=== PATIENT | female | born 1945 | race Caucasian/White ===

== ENCOUNTER 2017-04-23 05:30 | Day surgery (SDC) | payer MEDICARE, OTHER ==
[2017-04-16 09:50] LABS: HEMATOCRIT 47.1 % (36.0-47.0); HEMOGLOBIN 16.2 g/dL (12.0-15.5); HGB HCT DIFFERENCE 1.5; MEAN CORPUSCULAR HGB CONC 34.3 g/dL (32.0-36.0); MEAN CORPUSCULAR VOLUME 90 fl (80-97); RED BLOOD COUNT 5.23 10^6/uL (3.72-5.28); WHITE BLOOD COUNT 9.2 10^3/uL (4.0-10.5)
[2017-04-16 10:29] LABS: ANION GAP 10 (5-19); BLOOD UREA NITROGEN 12 mg/dL (7-20); CALCIUM 9.4 mg/dL (8.4-10.2); CARBON DIOXIDE 29 mmol/L (22-30); CHLORIDE 95 mmol/L (98-107); CREATININE RESULT 0.77 mg/dL (0.52-1.25); GLUCOSE 99 mg/dL (75-110); POTASSIUM 3.9 mmol/L (3.6-5.0); SODIUM 134.3 mmol/L (137-145)
--- NOTE | 2017-04-16 10:31 | RADIOLOGY REPORT (SQ) ---
EXAM DESCRIPTION: CHEST PA/LATERAL COMPLETED DATE/TIME: 04/16/2017 10:11 am REASON FOR STUDY: PRE-OP COMPARISON: August 2015 EXAM PARAMETERS: NUMBER OF VIEWS: two views TECHNIQUE: Digital Frontal and Lateral radiographic views of the chest acquired. RADIATION DOSE: NA LIMITATIONS: none FINDINGS: LUNGS AND PLEURA: No acute consolidations or pleural effusions are identified. A small no dular density is identified in the left lung base which may represent calcified costal cartilage or p ossibly a nipple shadow. Other etiologies cannot be completely excluded however. If clinically dk anted oblique views of the chest with nipple markers may be of value for further evaluation. MEDIASTINUM AND HILAR STRUCTURES: No masses or contour abnormalities. HEART AND VASCULAR STRUCTURES: Heart normal size. No evidence for failure. BONES: No acute findings. HARDWARE: None in the chest. OTHER: Bony structures are osteopenic with a slightly exaggerated thoracic kyphosis and degenerative changes in the thoracic spine. Old healed left rib fractures are again identified. IMPRESSION: No acute consolidations or pleural effusions are identified. Other findings as noted ab sofiya TECHNICAL DOCUMENTATION: JOB ID: [id number] [employer]- All Rights Reserved
--- NOTE | 2017-04-16 12:02 | EKG REPORT ---
SEVERITY:- OTHERWISE NORMAL ECG - SINUS RHYTHM LEFT AXIS DEVIATION LOW VOLTAGE IN FRONTAL LEADS : Confirmed by: Airam Castro MD 16-Apr-2017 12:02:13
[~2017-04-23 05:30] MED LIST: CEFAZOLIN 1 GM/D5W RTU 1 GM/50 ML RTUPB IV PRN; LACTATED RINGERS 1000 ML IV PRN; LIDOCAINE 0.5% INJ-PF (5 MG/ML) 50 ML SDV SUBCUT PRN
[2017-04-23] MEDS ORDERED: BUPIVACAINE HCL 0.25 % INJ/PF (2.5 MG/1 ML) 30 ML VIAL ONE (06:36)
[2017-04-23] MEDS ORDERED: FENTANYL CITRATE INJ/PF 250 MCG/5 ML AMPULE ONE (06:46)
[2017-04-23] MEDS ORDERED: MIDAZOLAM 2 MG/2 ML INJ ONE (06:47)
[2017-04-23] MEDS ORDERED: EPHEDRINE SULFATE INJ 50 MG/1 ML AMPULE ONE (06:47)
[2017-04-23] MEDS ORDERED: PROPOFOL INJ 200 MG/20 ML VIAL IV ONE (06:48)
[2017-04-23] MEDS ORDERED: ACETAMINOPHEN 100 ML IV ONE (06:48)
[2017-04-23] MEDS ORDERED: FENTANYL CITRATE INJ/PF 100 MCG/2 ML AMPUL IV PRN ×3 (08:03)
[2017-04-23] MEDS ORDERED: ONDANSETRON HCL INJ/PF 4 MG/2 ML SDV IV PRN ×3 (08:03→09:42)
[2017-04-23] MEDS ORDERED: DIPHENHYDRAMINE HCL 50 MG/ML VIAL IV PRN (08:03)
[2017-04-23] MEDS ORDERED: MORPHINE SULFATE 10 MG/ML INJ IV PRN ×2 (08:03→09:42)
[2017-04-23] MEDS ORDERED: BUPIVACAINE INJ/PF LIPOSOME/PF 266 MG/20 ML SDV ONE (08:35)
--- NOTE | 2017-04-23 09:16 | Operative Report ---
Operative Report DATE OF SURGERY: 04/23/17 PREOPERATIVE DIAGNOSIS: 1. Ventral wall hernia. 2. Intra-abdominal adhesions POSTOPERATIVE DIAGNOSIS: Same with multiple ventral wall hernias OPERATION: 1. Laparoscopic lysis of adhesions. 2. Percutaneous closure of multiple abdominal wall hernias. 3. Deployment of intraperitoneal Covidien 20 x 15 cm parietex mesh SURGEON: KEN PIZARRO 1ST DAIRY CONSULTANT: AJ QUILES ANESTHESIA: GA TISSUE REMOVED OR ALTERED: None COMPLICATIONS: None ESTIMATED BLOOD LOSS: Scant INTRAOPERATIVE FINDINGS: See below PROCEDURE: The patient was taken to the preop holding area the main operating room where general anesthesia was induced. Arms were abducted, abdomen prepped and draped with Betadine, and instrumentation set up for laparoscopic ventral hernia repair. Surgical plan and surgical timeout were conducted The patient's abdominal wall is significant for a long midline incision above and below the umbilicus from previous exploratory laparotomy. Therefore we approached the peritoneal cavity by placing a varies needle in the left upper quadrant. The skin was any stopped with quarter percent Marcaine. A small jared was made the skin with 11 blade, and a Veress needle inserted peritoneal cavity pneumoperitoneum established. Veress needle was removed, 5 mm port was inserted a 5 mm flexible scope was inserted. Under direct visualization, we placed 2 additional ports one on left lower quadrant and one in the right mid field. Findings were significant for extensive anterior abdominal wall and the remaining omentum and viscera. Using a combination of hook, cautery, blunt and LigaSure dissection, all the adhesions between the 2 loops of small bowel, and portion of omentum were taken after the anterior abdominal wall. Of note there were multiple hernias of varying sizes in fact a Surinamese cheese type configuration from the subxiphoid area to the umbilicus. Smaller hernias were more cephalad and larger hernias caudad. The 2 larger hernias were approximately 5 cm in diameter. All of the incarcerated tissue was reduced successfully. We were very cautious handling the small intestine. Photos were taken of the reduced tissue. Photos were also patient taken of the anterior abdominal wall demonstrating the multiple hernias. We now proceeded to close the majority of the fascial defects using the percutaneous suture passer and #1 PDS suture. Skin was anesthetized with quarter percent Marcaine. 2 small nicks were made in the skin between the xiphoid and the umbilicus and midline. Using the #1 PDS suture, we placed a variety of single loop and [id number] sutures starting from the cephalad position, closing the fascial defect as best we could under a mild to moderate amount of tension. Naturally this was not a pristine closure but it markedly reduced the gaping defect in the fascia. At the conclusion of the placement of approximately 7 stitches, we had the defects reasonably well closed and concluding photographs were taken. We now brought onto the field a 15 x 20 cm Covidien Parietex mesh oriented it such the 20 cm length was oriented vertically. 0 PDS stitches were placed at the 12, 3, 6, and 9:00 positions. The mesh was oriented with a marker, moistened, rolled, brought to the anterior abdominal wall at the right mid port site position. The mesh was unfolded, brought to the anterior abdominal wall using the disposable suture passer. All knots were secured at the respective positions, and then approximately 30 suture tack vamsi were used to secure the mesh in the intervening areas. There was no bleeding. We photographed the final product on the anterior abdominal wall. Were satisfied with the repair. We reinspected the viscera to ensure no evidence of injury there was none. The patient tolerated this portion of procedure well. All ports removed under direct visualization pneumoperitoneum evacuated, and wounds closed with 3-0 Vicryl. Approximately 20 cc of full-strength Exparel was injected subcutaneous space. Patient tolerated the procedure well, extubated, taken recovery in stable condition. The physician university administrative assistant, Ms. Quiles, provided assistance during this case by: Assisting and port insertion, retracting tissue, instillation of local anesthesia and closure of skin incisions..
--- NOTE | 2017-04-23 09:20 | PDOC DISCHARGE SUMMARY ---
Discharge Summary (SDC) - Discharge Final Diagnosis: ventral wall hernia Date of Surgery: 04/23/17 Discharge Date: 04/23/17 Condition: Stable Treatment or Instructions: [facility] [address], [place] [address] Discharge Instructions: Laparoscopic Surgery 1. General Information: a. DO NOT DRIVE a car or operate dangerous machinery for 3-4 days or while taking narcotic pain pills. b. DO NOT consume alcohol, tranquilizers, sleeping medications or any non- prescribed medications for 24 hours unless approved by your doctor or as long as taking narcotic prescription medications. c. DO NOT make important decisions or sign any important papers for the first 24 hours after surgery. d. When discharged home the same day of surgery have a responsible person with you for the first night. 2. Activity Restrictions: 6 weeks. a. NO heavy lifting, straining abdominal muscles, bending over a lot, yard work, house work, or sports for [address] for 3-4 days or while taking _Toradol_ . c. It is fine to go for walks, up and down steps, ride in a car. d. Elevate your head when sleeping/resting. 3. Treatment: a. You may shower 24 hours after surgery, no baths or swimming for 2 weeks. Remove band-aids or dressings before shower but leave paper strips (steri-strips ) on the skin to fall off on their own. If still on at postoperative visit they will be removed then. b. Drainage of fluid or blood is not unusual from an incision. If occurs, you can clean with peroxide and cotton ball daily and cover with dry gauze until the wound seals. c. If a lot of bleeding occurs, you can hold pressure with a gauze or cloth over the site for 10 minutes and it will usually stop. If bleeding continues you will need to call for possible evaluation in office or emergency room. 4. Medications: a. _Toradol_ may be taken for pain as needed, one or two tablets every 4-6 hours. Stop the narcotic when able since you cannot take it and drive, and they cause constipation. You may switch to plain Tylenol as you transition from the narcotic. Many adults find good pain relief with Advil 600-800 mg three times a day with meals. This can cause indigestion, ulcers, and kidney problems with long-term use. Do not take advil while taking toradol b. You should resume all normal medications unless a change is specified by your doctors. c. Antibiotic(s) if needed ( NONE) 5. Diet: Begin with clear liquids and may progress to your normal diet if not nauseated. No high fat, high protein foods the day of surgery. 6. The following may occur after laparoscopic surgery: a. Shoulder or upper back ache from retained gas that should resolve in 1-2 days b. Soreness and bruising at incision sites will resolve with time. c. Scrotal swelling (labia in women) and bruising is often seen after hernia surgery. d. Sore throat e. Fatigue may last days to weeks. f. Difficulty urinating may occur and may need to come into emergency room for urinary catheter placement. 7. Notify Physician If: a. Worsening or pain not improved with pain medication b. Persistent nausea and vomiting c. Fever above 101 d. Persistent bleeding or swelling at operative site e. Unable to urinate and uncomfortable bladder 6-8 hours after surgery 8..Follow Up Care: a. Schedule a follow up appointment with your doctor for 2 weeks. In the event of any postoperative problems or questions or you may call the office during business hours or the On-Call physician evenings and weekends at [facility]. [facility] I understand the instructions for my postoperative care as described above and a copy has been given to me. Patient/Significant Other Witness Date Prescriptions: Ketorolac Tromethamine [Toradol 10 mg Tablet] 10 mg PO Q6HP PRN #20 tablet PRN Reason: Discharge Diet: As Tolerated Discharge Activity: No Lifting Over 10 Pounds, No Lifting/Push/Pulling Report the Following to Your Physician Immediately: Nausea, Vomiting, Increase in Pain, Fever over 101 Degrees, Swelling, Warmth, Drainage-Foul Smelling
[2017-04-23] MEDS: FENTANYL CITRATE INJ/PF 100 MCG/2 ML AMPUL ONE ×2 (09:39→09:51)
[2017-04-23] MEDS ORDERED: OXYCODONE-ACETAMINOPHEN 5-325 MG TABLET PO PRN (09:41)
[2017-04-23] MEDS ORDERED: DOCUSATE SODIUM 100 MG CAPSULE PO SCH (10:00)
[2017-04-23] MEDS ORDERED: GLYCOPYRROLATE INJ 0.4 MG/2 ML VIAL ONE (11:49)
[2017-04-23] MEDS ORDERED: LIDOCAINE 2% INJ-PF (20 MG/ML) 10 ML AMPUL ONE (11:49)
[2017-04-23] MEDS ORDERED: SUCCINYLCHOLINE CHLORIDE INJ 200 MG/10 ML VIAL ONE (11:49)
[2017-04-23] MEDS ORDERED: ONDANSETRON HCL INJ/PF 4 MG/2 ML SDV ONE (11:49)
[2017-04-23] MEDS ORDERED: VECURONIUM BROMIDE INJ 10 MG VIAL IV ONE (11:49)
[2017-04-23] MEDS ORDERED: NEOSTIGMINE METHYLSULFATE 10 MG/10 ML VIAL ONE (11:49)
[2017-04-23] MEDS ORDERED: DEXAMETHASONE SOD PHOSPHATE INJ 4 MG/1 ML VIAL ONE (11:49)
[2017-04-23] MEDS ORDERED: DOCUSATE SODIUM 100 MG CAPSULE PO ONE (12:00)
[2017-04-23] MEDS: DEXTROSE 5%-LACTATED RINGERS 1,000 ML IV PRN (14:47)
[2017-04-23] MEDS: DOCUSATE SODIUM 100 MG CAPSULE PO SCH (17:16)
[2017-04-23] MEDS: OXYCODONE-ACETAMINOPHEN 5-325 MG TABLET PO PRN (17:17)
[2017-04-24] MEDS: OXYCODONE-ACETAMINOPHEN 5-325 MG TABLET PO PRN
[2017-04-24] MEDS: DEXTROSE 5%-LACTATED RINGERS 1,000 ML IV PRN (04:51)
[2017-04-24] MEDS ORDERED: MORPHINE SULFATE 10 MG/ML INJ IV PRN (09:11)
[2017-04-24] MEDS ORDERED: ONDANSETRON HCL INJ/PF 4 MG/2 ML SDV IV PRN (09:12)
[2017-04-24] MEDS: DOCUSATE SODIUM 100 MG CAPSULE PO SCH (10:19)
[2017-04-24 10:54] VITALS: BP 172/98
== END 2017-04-24 11:33 | disposition home or self-care (01) ==
LOC: OROUT 05:30 → 4N 11:04 → OROUT 04-24 11:33
PROVIDERS: ATTEND Surgery
PROC: 0DNW4ZZ Release Peritoneum, Percutaneous Endoscopic Approach (ICD-10-PCS; 2017-04-23)
PROC: 0WUF4JZ Supplement Abdominal Wall with Synthetic Substitute, Percutaneous Endoscopic Approach (ICD-10-PCS; principal; 2017-04-23 07:30)
DX: K43.9 Ventral hernia without obstruction or gangrene (principal); K66.0 Peritoneal adhesions (postprocedural) (postinfection); J44.9 Chronic obstructive pulmonary disease, unspecified; R06.02 Shortness of breath; M19.90 Unspecified osteoarthritis, unspecified site; I10 Essential (primary) hypertension; F17.210 Nicotine dependence, cigarettes, uncomplicated; Z79.899 Other long term (current) drug therapy; Z79.891 Long term (current) use of opiate analgesic; Z90.49 Acquired absence of other specified parts of digestive tract
CPT/HCPCS: 93005; 36415 ×2; 84132; 85027; 80048; 71020; 94799; 93010; 49652; 49329; C1781; J2250; J0690; J1100; A9270 ×4; J3490 ×3; J3010 ×2; J2270; J0330; J2405; J2704; J0131; C9290; 752

== ENCOUNTER 2017-04-28 15:13 | Inpatient (IN) | payer MEDICARE, OTHER ==
[2017-04-28] MEDS ORDERED: NORMAL SALINE 1000 ML 1,000 ML IV ONE (16:15)
--- NOTE | 2017-04-28 17:18 | HISTORY AND PHYSICAL E ---
History and Physical NAME: LUIZ MORRISON : 1945 AGE: 71Y ADMITTED: 04/28/2017 ROOM: 425 CHIEF COMPLAINT: Failure to thrive. HISTORY OF PRESENTING ILLNESS: The patient is a 71-year-old white female, 5 days status post laparoscopic ventral wall hernia repair with mesh by Dr. Hussein at [facility]. The patient was discharged home on postoperative day 1 with abdominal pain, but not unexpected considering the large mesh inserted. While home, patient did not do well, with poor p.o. intake, poor activity, persisting abdominal pain. She presents to [facility] earlier today complaining of above symptoms with loose stool and nonproductive cough. She continues to smoke a pack to two a day. Laboratory profile was obtained which showed a leukocytosis, and metabolic acidosis with dehydration. She was advised admission. PAST MEDICAL HISTORY: Significant for: 1. COPD. 2. Hypertension. PAST SURGICAL HISTORY: Significant for the above plus: 1. Laparoscopic cholecystectomy. 2. Colonoscopy. 3. Previous exploratory laparotomy with a bowel obstruction. 4. Tubal ligation. MEDICATIONS: Include: 1. Lisinopril. 2. Atenolol. 3. Tramadol. 4. Trazodone. FAMILY HISTORY: Significant for thyroid disease and coronary artery disease. SOCIAL HISTORY: The patient continues to smoke daily. REVIEW OF SYSTEMS: CONSTITUTIONAL: As per HPI. CARDIOVASCULAR: The patient denies. RESPIRATORY: The patient reports chronic cough, but nonproductive. GASTROINTESTINAL: The patient has very little p.o. intake due to abdominal pain. Remainder of the review of systems is unremarkable. PHYSICAL EXAMINATION: VITAL SIGNS: Temperature 97.8. Heart rate 81. Blood pressure 120/69. Respirations 14. Room air saturation 95%. GENERAL: The patient appears to be in mild distress but not acutely so. HEAD: Eyes without icterus. Oropharynx shows poor dentition. PULMONARY: Exam reveals accessory muscles of respiration utilized with scattered rhonchi. HEART: Without murmur or gallop. ABDOMEN: The abdomen has operative Steri-Strips in place. The abdomen is not distended. There are no peritoneal signs. There is some tenderness but no rigidity. EXTREMITIES: Upper and lower extremities without cyanosis, clubbing, edema. DIAGNOSTIC DATA: Laboratory profile shows a white blood cell count of 18,600 with 92% segmented neutrophils, hemoglobin 15.1. Electrolytes show bicarbonate of 15 and a potassium of 3.3, alkaline phosphatase at 250, AST 67, ALT 53, total bilirubin 1.3, lipase 14.2. IMPRESSION: 1. Postoperative abdominal pain. 2. Leukocytosis. 3. Metabolic acidosis with dehydration. 4. Five days post laparoscopic ventral hernia repair. 5. COPD. 6. Active smoker. RECOMMENDATIONS: 1. Admit to surgicalist service, keep NPO on IV fluids, and order a CT scan of the abdomen and pelvis with IV and oral contrast as well as a chest x-ray. 2. Will consult the hospitalist service to assist in further evaluation of the patient. 3. Will also provide a conservative amount of pain medication as needed. DICTATING PHYSICIAN: KEN HUSSEIN M.D. [id number] PHY#: [id number] ID: [id number] JOB#: [id number] ACCT: [id number] cc:KEN HUSSEIN M.D. >
[2017-04-28] MEDS: KETOROLAC TROMETHAMINE INJ/PF 30 MG/1 ML SDV IV PRN (17:52)
--- NOTE | 2017-04-28 18:39 | PDOC CONSULTATION ---
Consultation Consult Date: 04/28/17 Attending physician:: KEN LOPEZ Consult reason:: medical management History of Present Illness Admission Date/PCP: 04/28/17 16:51 ROBERT GIBBONS MD Patient complains of: abdominal pain History of Present Illness: LUIZ MORRISON is a 71 year old female presents to the hospital from surgeon 's office where she went for increasing RLQ abdominal pain. she is postop day # 5 for laparoscopic ventral hernia repair and lysis of adhesions with mesh placement by dr lopez. she reports constant, cramping, aching abdominal pain , nonradiating with dry heaves, subjective fevers and chills. she reports last BM yesterday liquid with stool elements but no blood. she denies dysuria, chest pain, palpitations, MEI, SOA, swollen glands, sore throat, rash and her wounds are not hot, red or tender themselves. In the office today she just didn 't look well, labs show marked leukocytosis, mild hypokalemia, mild AG metabolic acidosis and abnl LFTs. we were asked to follow along and help sort out her symptoms. Past Medical History Cardiac Medical History: Reports: Hypertension Denies: Coronary Artery Disease, Myocardial Infarction Pulmonary Medical History: Denies: Asthma, Bronchitis, Chronic Obstructive Pulmonary Disease (COPD), Pneumonia Neurological Medical History: Denies: Seizures Musculoskeltal Medical History: Denies: Arthritis Psychiatric Medical History: Denies: Depression Hematology: Denies: Anemia Past Surgical History Past Surgical History: Reports: Cholecystectomy, Other - ventral hernia repair, lysis of adhesions and mesh placement Social History Information Source: Patient Smoking Status: Current Every Day Smoker Cigarettes Packs Per Day: 2 Frequency of Alcohol Use: None Hx Recreational Drug Use: No Drugs: None Hx Prescription Drug Abuse: No - Advance Directive Resuscitation Status: Full Code Family History Family History: Reviewed & Not Pertinent Parental Family History Reviewed: Yes Children Family History Reviewed: Yes Sibling(s) Family History Reviewed.: Yes Medication/Allergy Home Medications: Atenolol [Tenormin 50 mg Tablet] 50 mg PO DAILY 04/28/17 Dicyclomine HCl [Bentyl 10 mg Capsule] 10 mg PO DAILY 04/28/17 Hydrochlorothiazide 25 mg PO DAILY 04/28/17 Omeprazole 40 mg PO DAILY 04/28/17 Tramadol HCl [Ultram 50 mg Tablet] 50 mg PO TID 04/28/17 Allergies/Adverse Reactions: No Known Allergies Allergy (Verified 04/11/17 11:25) Review of Systems All systems: reviewed and no additional remarkable complaints except as stated - all systems reviewed, see HPI, remaining systems negative Physical Exam Vital Signs: Temp Pulse Resp BP Pulse Ox 97.9 F 81 14 121/69 95 04/28/17 16:25 04/28/17 16:25 04/28/17 16:25 04/28/17 16:25 04/28/17 16:25 Intake & Output 04/27/17 04/28/17 04/29/17 06:59 06:59 06:59 Weight 46.4 kg General appearance: PRESENT: no acute distress, well-developed, well-nourished Head exam: PRESENT: atraumatic, normocephalic Eye exam: PRESENT: EOMI. ABSENT: conjunctival injection, scleral icterus Neck exam: PRESENT: JVD. ABSENT: full ROM, lymphadenopathy, tenderness Respiratory exam: PRESENT: clear to auscultation rayray. ABSENT: accessory muscle use Cardiovascular exam: PRESENT: RRR. ABSENT: systolic murmur Pulses: PRESENT: normal radial pulses, normal dorsalis pedis pul Vascular exam: PRESENT: normal capillary refill GI/Abdominal exam: PRESENT: normal bowel sounds, soft, tenderness - point specific RLQ tenderness to palpation. ABSENT: distended, guarding Extremities exam: ABSENT: calf tenderness, pedal edema Musculoskeletal exam: PRESENT: ambulatory, full ROM Neurological exam: PRESENT: alert, awake, oriented to person, oriented to place , oriented to time, oriented to situation Psychiatric exam: PRESENT: appropriate affect, normal mood Skin exam: PRESENT: warm, other - laparoscopic wounds are well approximated, c/d /i Results Laboratory Results: labs reviewed from earlier today, WBCs 18.6, 92% segs without bands, mild hypokalemia 3.3, CO3 15, AG 24 and LFTs mildly elevated, normal lipase Assessment & Plan - Diagnosis (1) Abdominal pain Qualifiers: Abdominal location: generalized Qualified Code(s): R10.84 - Generalized abdominal pain Is this a current diagnosis for this admission?: YesPlan: unclear etiology, possibly related to recent surgery and resultant abdominal wall pain. discussed case with dr lopez and he will order ct abd/pelvis and cxr with follow up labs in the am. he started IVFs with potassium supplements. pain control per surgery. diet per surgery. (2) High anion gap metabolic acidosis Is this a current diagnosis for this admission?: YesPlan: she freely admits to almost no oral intake so initial thinking is starvation ketosis; we'll see what the ct scan shows and follow up CO2 after IVFs. (3) Hypokalemia Is this a current diagnosis for this admission?: YesPlan: replace and monitor; ck Mg in am (4) Abnormal liver function Is this a current diagnosis for this admission?: YesPlan: again, likely due to lack of oral intake, will ck again in am after IVFs (5) HTN (hypertension) Qualifiers: Hypertension type: essential hypertension Qualified Code(s): I10 - Essential (primary) hypertension Is this a current diagnosis for this admission?: YesPlan: continue home regimen with holding parameters. (6) GERD (gastroesophageal reflux disease) Qualifiers: Esophagitis presence: esophagitis presence not specified Qualified Code(s): K21.9 - Gastro-esophageal reflux disease without esophagitis Is this a current diagnosis for this admission?: YesPlan: CONTINUE PPI - Time Time Spent: 30 to 50 Minutes Medications reviewed and adjusted accordingly: Yes
--- NOTE | 2017-04-28 20:31 | RADIOLOGY REPORT (SQ) ---
EXAM DESCRIPTION: CHEST PA/LAT COMPLETED DATE/TIME: 04/28/2017 8:00 pm REASON FOR STUDY: S/P Ventral Hernia COMPARISON: August 2015 EXAM PARAMETERS: NUMBER OF VIEWS: two views TECHNIQUE: Digital Frontal and Lateral radiographic views of the chest acquired. RADIATION DOSE: NA LIMITATIONS: none FINDINGS: LUNGS AND PLEURA: Patchy increased density is identified in the lung bases which could rep resent bibasilar pneumonic infiltrates or atelectatic changes. Remaining lung palma are clear. No pleural effusions are identified. Again there is evidence for obstructive lung disease. MEDIASTINUM AND HILAR STRUCTURES: No masses or contour abnormalities. HEART AND VASCULAR STRUCTURES: Heart normal size. No evidence for failure. BONES: Bony structures are osteopenic with an exaggerated thoracic kyphosis and degenerative changes in the thoracic spine. HARDWARE: None in the chest. OTHER: No other significant finding. IMPRESSION: Bibasilar air airspace densities as noted above which could represent bibasilar pneumoni c infiltrates or atelectatic changes. Obstructive lung disease. Other findings as noted above TECHNICAL DOCUMENTATION: JOB ID: [id number] [employer]- All Rights Reserved
[2017-04-28] MEDS ORDERED: VANCOMYCIN HCL 0 MG in DEXTROSE 5%-WATER 250 ML IV NR (22:15)
[2017-04-28] MEDS: NORMAL SALINE 1000 ML 1,000 ML with POTASSIUM CHLORIDE 30 MEQ IV PRN ×2 (22:31)
[2017-04-28 22:53] LABS: APPEARANCE,URINE CLEAR; BILIRUBIN,URINE NEGATIVE (NEGATIVE); GLUCOSE, URINE NEGATIVE (NEGATIVE); KETONES,URINE 80 mg/dL (NEGATIVE); LEUKOCYTE ESTERASE,URINE LARGE (NEGATIVE); NITRITE,URINE NEGATIVE (NEGATIVE); PROTEIN,URINE NEGATIVE (NEGATIVE)
[2017-04-28 22:54] LABS: URINE SPECIFIC GRAVITY > 1.060
[2017-04-28] MEDS ORDERED: AZITHROMYCIN INJ 500 MG VIAL IV PRN (22:59)
[2017-04-28] MEDS ORDERED: AZITHROMYCIN 500 MG in DEXTROSE 5%-WATER 250 ML IV ONE (23:00)
[2017-04-28] MEDS ORDERED: CEFTRIAXONE 1 GM/D5W RTU 1 GM/50 ML RTUPB IV ONE (23:00)
[2017-04-28] MEDS ORDERED: VANCOMYCIN HCL INJ 1000 MG VIAL IV PRN (23:25)
[2017-04-29] MEDS ORDERED: VANCOMYCIN HCL 1,000 MG in DEXTROSE 5%-WATER 250 ML IV ONE ×2
[2017-04-29] MEDS ORDERED: VANCOMYCIN HCL INJ 1000 MG VIAL ONE (00:47)
[2017-04-29] MEDS ORDERED: AZITHROMYCIN INJ 500 MG VIAL IV ONE (00:47)
--- NOTE | 2017-04-29 02:13 | RADIOLOGY REPORT (SQ) ---
EXAM DESCRIPTION: CT ABD/PELVIS WITH IV ORAL COMPLETED DATE/TIME: 04/28/2017 8:15 pm REASON FOR STUDY: S/P Ventral Hernia Repair K43.9 VENTRAL HERNIA WITHOUT OBSTRUCTION OR GANGRENE COMPARISON: CR, chest, 04/28/2017 TECHNIQUE: CT scan of the abdomen and pelvis performed using helical scanning technique with dynamic intravenous contrast injection. No oral contrast. Images reviewed with lung, soft tissue, and bone windows. Reconstructed coronal and sagittal MPR images reviewed. Delayed images for evaluation of the urinary system also acquired. All images stored on PACS. All CT scanners at this facility use dose modulation, iterative reconstruction, and/or weight based d osing when appropriate to reduce radiation dose to as low as reasonably achievable (ALARA). [facility]: Dose Right [facility]: CareDose [facility]: Dose Right [facility]: Teradose 4D [facility]: CD Diagnostics CONTRAST TYPE AND DOSE: contrast/concentration: Isovue 370.00 mg/ml; Total Contrast Delivered: 50.0 ml; Total Saline Delivered: 65.1 ml RENAL FUNCTION: Creatinine 0.8 RADIATION DOSE: Up-to-date CT equipment and radiation dose reduction techniques were employed. CTDIv ol: 2.9 - 3.5 mGy. DLP: 276 mGy-cm.. LIMITATIONS: None. FINDINGS: LOWER CHEST: Small airspace consolidation of the right lower lobe. Small streakiness of b ilateral lower lobes. Minimal right pleural fluid. LIVER: Normal size. No masses. No dilated ducts. Calcified granulomata. SPLEEN: Normal size. No focal lesions. PANCREAS: No masses. No significant calcifications. No adjacent inflammation or peripancreatic fluid collections. Pancreatic duct not dilated. GALLBLADDER: Surgically absent. ADRENAL GLANDS: No significant masses or asymmetry. RIGHT KIDNEY AND URETER: No solid masses. No significant calcifications. No hydronephrosis or hyd roureter. LEFT KIDNEY AND URETER: No solid masses. No significant calcifications. No hydronephrosis or hydr oureter. AORTA AND VESSELS: Atherosclerosis of the splenic artery may involve up to 2 small splenic arterial a neurysms measuring up to 0.7 cm each and/or tortuosity. Atherosclerosis of the abdominal aorta witho ut aneurysm. No dissection. Renal arteries, SMA, celiac without stenosis. Atherosclerosis. RETROPERITONEUM: No retroperitoneal adenopathy, hemorrhage or masses. BOWEL AND PERITONEAL CAVITY: No masses or inflammatory changes. No free fluid or peritoneal masses. Colonic diverticulosis. Residual intra colonic contrast. Mild fluid distention of the ileum with ai r-fluid levels measuring up to 2.6 cm in diameter. APPENDIX: Normal. PELVIS: No mass. No free fluid. Normal bladder. ABDOMINAL WALL: Moderate subcutaneous emphysema and minimal fluid along the supraumbilical midline in an area of recent ventral hernia repair. BONES: Mild L5-S1 vacuum disc desiccation. T12-L1 disc replacement -calcification. Seex-[id number] disc desiccation of the thoracolumbar spine. OTHER: No other significant finding. IMPRESSION: 1. Small to moderate right lower lobar pneumonia. 2. Mild focal ileus of the ileum i n the right lower abdominal quadrant. Recent ventral hernia repair. TECHNICAL DOCUMENTATION: JOB ID: [id number] Quality ID # [id number]: Final reports with documentation of one or more dose reduction techniques (e.g., Au tomated exposure control, adjustment of the mA and/or kV according to patient size, use of iterative reconstruction technique) 2010 [employer]- All Rights Reserved
[2017-04-29 05:39] LABS: HEMATOCRIT 36.4 % (36.0-47.0); MEAN CORPUSCULAR HGB CONC 35.2 g/dL (32.0-36.0); MEAN CORPUSCULAR VOLUME 91 fl (80-97); RED CELL DISTRIBUTION WIDTH 13.6 % (11.5-14.0); WHITE BLOOD COUNT 9.2 10^3/uL (4.0-10.5)
[2017-04-29 05:40] LABS: HEMOGLOBIN 12.8 g/dL (12.0-15.5)
[2017-04-29 05:48] LABS: ANION GAP 11 (5-19); BLOOD UREA NITROGEN 20 mg/dL (7-20); CALCIUM 7.5 mg/dL (8.4-10.2); CARBON DIOXIDE 22 mmol/L (22-30); CHLORIDE 99 mmol/L (98-107); CREATININE RESULT 0.56 mg/dL (0.52-1.25); GLUCOSE 129 mg/dL (75-110); MAGNESIUM 2.2 mg/dL (1.6-2.3); SODIUM 131.8 mmol/L (137-145)
[2017-04-29 05:53] LABS: POTASSIUM 2.9 mmol/L (3.6-5.0)
[2017-04-29] MEDS: POTASSI CL 20 MEQ/50 ML RIDER 20 MEQ/50 ML RTUPB IV SCH ×3 (06:57→12:14)
[2017-04-29] MEDS: KETOROLAC TROMETHAMINE INJ/PF 30 MG/1 ML SDV IV PRN (08:04)
[2017-04-29] MEDS: LANSOPRAZOLE 30 MG TAB.RAP.DR PO SCH (09:16)
[2017-04-29] MEDS: ATENOLOL 50 MG TABLET PO SCH (09:16)
[2017-04-29] MEDS ORDERED: CEFTRIAXONE 1 GM/D5W RTU 1 GM/50 ML RTUPB IV SCH (10:00)
[2017-04-29] MEDS ORDERED: VANCOMYCIN HCL 500 MG in DEXTROSE 5%-WATER 100 ML IV SCH (10:00)
[2017-04-29] MEDS ORDERED: NICOTINE 21 MG/24 HR PATCH.TD24 TD ONE (10:00)
--- NOTE | 2017-04-29 10:13 | PDOC PROGRESS REPORT ---
Subjective Progress Note for:: 04/29/17 Subjective:: Patient is seen on morning on rounds. She is resting in bed. She is mildly tachypneic at rest. She denies dyspnea. She does have a congested cough. She continues to complain of diffuse abdominal discomfort. She states she had one episode of diarrhea this morning. She denies any nausea. She states she is feeling hungry. She denies any other complaints. Remaining review of systems are negative. Physical Exam Vital Signs: Temp Pulse Resp BP Pulse Ox 98.7 F 67 16 143/88 H 96 04/29/17 08:00 04/29/17 08:00 04/29/17 08:00 04/29/17 08:00 04/29/17 08:00 Intake & Output 04/28/17 04/29/17 04/30/17 06:59 06:59 06:59 Intake Total 2151 200 Output Total 300 Balance 1851 200 Weight 49.4 kg General appearance: PRESENT: no acute distress, thin, well-developed, well- nourished Head exam: PRESENT: atraumatic, normocephalic Eye exam: PRESENT: conjunctiva pink, EOMI, PERRLA. ABSENT: scleral icterus Ear exam: PRESENT: normal external ear exam Mouth exam: PRESENT: moist, tongue midline Neck exam: ABSENT: carotid bruit, JVD, lymphadenopathy, thyromegaly Respiratory exam: PRESENT: rhonchi, symmetrical, tachypnea - Right lung field, unlabored. ABSENT: rales, wheezes Cardiovascular exam: PRESENT: RRR. ABSENT: diastolic murmur, rubs, systolic murmur Pulses: PRESENT: normal dorsalis pedis pul Vascular exam: PRESENT: normal capillary refill GI/Abdominal exam: PRESENT: normal bowel sounds, soft. ABSENT: distended, guarding, mass, organolmegaly, rebound, tenderness Rectal exam: PRESENT: deferred Extremities exam: PRESENT: full ROM. ABSENT: calf tenderness, clubbing, pedal edema Neurological exam: PRESENT: alert, awake, oriented to person, oriented to place , oriented to time, oriented to situation, CN II-XII grossly intact, normal gait Psychiatric exam: PRESENT: anxious, normal mood. ABSENT: homicidal ideation, suicidal ideation Skin exam: PRESENT: dry, intact, warm. ABSENT: cyanosis, rash Results Laboratory Results: 04/29/17 04:44 08/01/17 04:44 04/28/17 04/29/17 04/29/17 22:00 04:44 04:44 WBC 9.2 RBC 4.00 Hgb 12.8 D Hct 36.4 MCV 91 MCH 32.0 MCHC 35.2 RDW 13.6 Plt Count 266 Sodium 131.8 L Potassium 2.9 L* Chloride 99 Carbon Dioxide 22 Anion Gap 11 BUN 20 Creatinine 0.56 Est GFR ( Amer) > 60 Est GFR (Non-Af Amer) > 60 Glucose 129 H Calcium 7.5 L Magnesium 2.2 Urine Color YELLOW Urine Appearance CLEAR Urine pH 6.0 Ur Specific [place] > 1.060 Urine Protein NEGATIVE Urine Glucose (UA) NEGATIVE Urine Ketones 80 H Urine Blood SMALL H Urine Nitrite NEGATIVE Ur Leukocyte Esterase LARGE H Urine WBC (Auto) 20 Urine RBC (Auto) 5 Impressions: Abdomen/Pelvis CT 04/28/17 00:00 IMPRESSION: 1. Small to moderate right lower lobar pneumonia. 2. Mild focal ileus of the ileum in the right lower abdominal quadrant. Recent ventral hernia repair. Chest X-Ray 04/28/17 00:00 IMPRESSION: Bibasilar air airspace densities as noted above which could represent bibasilar pneumonic infiltrates or atelectatic changes. Obstructive lung disease. Other findings as noted above Assessment & Plan - Diagnosis (1) Abdominal pain Qualifiers: Abdominal location: generalized Qualified Code(s): R10.84 - Generalized abdominal pain Is this a current diagnosis for this admission?: YesPlan: Patient noted to have small ileus on CT of the abdomen and pelvis. Pain has improved since yesterday. (2) Basal pneumonia of both lungs Is this a current diagnosis for this admission?: YesPlan: Continue broad spectrum antibiotics. Obtain sputum culture (3) GERD (gastroesophageal reflux disease) Qualifiers: Esophagitis presence: esophagitis presence not specified Qualified Code(s): K21.9 - Gastro-esophageal reflux disease without esophagitis Is this a current diagnosis for this admission?: YesPlan: Continue PPI therapy (4) HTN (hypertension) Qualifiers: Hypertension type: essential hypertension Qualified Code(s): I10 - Essential (primary) hypertension Is this a current diagnosis for this admission?: YesPlan: Presently normotensive (5) High anion gap metabolic acidosis Is this a current diagnosis for this admission?: YesPlan: Improving most likely due to poor oral intake post operatively (6) Hypokalemia Is this a current diagnosis for this admission?: YesPlan: Replete and monitor (7) Hyponatremia Is this a current diagnosis for this admission?: YesPlan: Likely secondary to HCTZ and poor oral intake, Will hold HCTZ and monitor - Time Time Spent with patient: 25-34 minutes Critical Time spent with patient: 15-24 minutes Medications reviewed and adjusted accordingly: Yes Anticipated discharge: Home
[2017-04-29] MEDS: HYDROCODONE/ACETAMINOPHEN 5-325 MG TABLET PO PRN ×3 (10:17→23:48)
--- NOTE | 2017-04-29 10:18 | PROGRESS NOTE E ---
Progress Note NAME: LUIZ MORRISON : 1945 AGE: 71Y DATE: 04/29/2017 ROOM: 425 SUBJECTIVE: She is about 6 days post laparoscopic ventral hernia repair with mesh. She is does not complain of any pains in the abdomen, only tenderness on palpation. Still feels weak and trying to take as much p.o. liquids. Still appears to be short of breath, likely from her COPD. PLAN: We will check her electrolytes since her potassium was really low on admission. DICTATING PHYSICIAN: MO ADHIKARI M.D. [id number] PHY#: [id number] ID: [id number] JOB#: [id number] ACCT: [id number] cc: >
--- NOTE | 2017-04-29 10:42 | Physician Advisory Note ---
Physician Advisor ProgressNote .: Pursuant to the plan for [facility], I have reviewed the medical record for this patient. Physician Advisor Statement: Nice documentation of hyponatremia due to HCTZ + poor po intake, acute metabolic acidosis w/likely cause. Please consider documentin. Likely cause of PNA - [?"possible gram positive, cannot rule out atypical bacteria"? anaerobes given poor dentition? ?GN given age & COPD?] 2. Status -below. Status: Pt with COPD, ongoing smoking, with persistent abd pain, poor po intake , some loose BMs, nonproductive cough 5 days after ventral hernia/mesh surgery. (+) subjective F/C per hospitalist consultation. (+)SIRS criteria on arrival though not clearly septic, (+)rhonchi, poor dentition, accessory muscle use with O2 sat only 92% on RA, abd TTP w/o rigidity. WBC 18.6 w/Lt shift, K 3.3, bicarb 15. Attending/quality assurance consultant ordered NPO, NS x1L then IVF w/40K at 175, abd CT, CXR, po pain meds.... CT showed PNA, so attending ordered vanc/Zmax/Rocephin, incentive spirometry. Also (+) ileus. After 1MN of hospital care, this Medicare pt still has mild tachypnea at rest, congested cough, loose BM this AM, but hungry. WBC down to 9.2, acidosis resolved. Now with acute hyponatremia, worsened hypokalemia. Attending holding HCTZ & following closely with continued IVF, K replacement, abx, awaiting cx results. Pt clearly will need at least a 2nd MN of hospital care & monitoring before she can be considered safe for d/c. Appropriate to change to Inpt status. CK
[2017-04-29] MEDS: NORMAL SALINE 1000 ML 1,000 ML with POTASSIUM CHLORIDE 30 MEQ IV PRN ×2 (16:59)
[2017-04-29 17:18] LABS: ANION GAP 8 (5-19); BLOOD UREA NITROGEN 16 mg/dL (7-20); CALCIUM 7.6 mg/dL (8.4-10.2); CARBON DIOXIDE 21 mmol/L (22-30); CHLORIDE 104 mmol/L (98-107); CREATININE RESULT 0.59 mg/dL (0.52-1.25); GLUCOSE 93 mg/dL (75-110); SODIUM 132.9 mmol/L (137-145)
[2017-04-29 17:39] LABS: POTASSIUM 3.9 mmol/L (3.6-5.0)
[2017-04-29] MEDS ORDERED: AZITHROMYCIN 500 MG in DEXTROSE 5%-WATER 250 ML IV SCH (22:00)
[2017-04-30] MEDS: NORMAL SALINE 1000 ML 1,000 ML with POTASSIUM CHLORIDE 30 MEQ IV PRN ×2 (02:00)
[2017-04-30 05:58] LABS: ANION GAP 8 (5-19); BLOOD UREA NITROGEN 10 mg/dL (7-20); CALCIUM 7.6 mg/dL (8.4-10.2); CARBON DIOXIDE 18 mmol/L (22-30); CHLORIDE 110 mmol/L (98-107); CREATININE RESULT 0.49 mg/dL (0.52-1.25); GLUCOSE 82 mg/dL (75-110); POTASSIUM 4.1 mmol/L (3.6-5.0); SODIUM 135.7 mmol/L (137-145)
[2017-04-30] MEDS: HYDROCODONE/ACETAMINOPHEN 5-325 MG TABLET PO PRN ×2 (06:01→13:43)
--- NOTE | 2017-04-30 07:42 | PDOC PROGRESS REPORT ---
Subjective Progress Note for:: 04/30/17 Subjective:: Patient states she had a better night; took more p.o. Ambulated more. Physical Exam Vital Signs: Temp Pulse Resp BP Pulse Ox 99.5 F 74 17 147/74 H 93 04/30/17 00:00 04/30/17 00:00 04/30/17 00:00 04/30/17 00:00 04/30/17 00:00 Intake & Output 04/29/17 04/30/17 05/01/17 06:59 06:59 06:59 Intake Total 2151 3157 Output Total 300 Balance 1851 3157 Weight 49.4 kg 50.1 kg General appearance: PRESENT: no acute distress Respiratory exam: PRESENT: other - Improving left labored GI/Abdominal exam: PRESENT: other - Abdomen soft benign no peritoneal signs no rigidity no distention Results Laboratory Results: 04/29/17 04:44 04/30/17 05:24 04/29/17 04/30/17 16:54 05:24 Sodium 132.9 L 135.7 L Potassium 3.9 D 4.1 Chloride 104 110 H Carbon Dioxide 21 L 18 L Anion Gap 8 8 BUN 16 10 Creatinine 0.59 0.49 L Est GFR ( Amer) > 60 > 60 Est GFR (Non-Af Amer) > 60 > 60 Glucose 93 82 Calcium 7.6 L 7.6 L Impressions: Abdomen/Pelvis CT 04/28/17 00:00 IMPRESSION: 1. Small to moderate right lower lobar pneumonia. 2. Mild focal ileus of the ileum in the right lower abdominal quadrant. Recent ventral hernia repair. Chest X-Ray 04/28/17 00:00 IMPRESSION: Bibasilar air airspace densities as noted above which could represent bibasilar pneumonic infiltrates or atelectatic changes. Obstructive lung disease. Other findings as noted above Assessment & Plan - Diagnosis (1) Hypokalemia Is this a current diagnosis for this admission?: YesPlan: Patient readmitted to the hospital postoperatively for dehydration, hypokalemia , failure to thrive. Patient is clinically improved, back on diet. Potassium in the normal range. Recommendations: 1. Patient will shower, ambulate. 2. We will give 1 p.o. dose of potassium replacement this morning. 3. Anticipate discharge home later today if he continues to do well.
[2017-04-30] MEDS ORDERED: POTASSIUM CHLORIDE 10 MEQ TABLET.SA PO ONE (09:00)
[2017-04-30] MEDS: LANSOPRAZOLE 30 MG TAB.RAP.DR PO SCH (09:32)
[2017-04-30] MEDS: ATENOLOL 50 MG TABLET PO SCH (09:32)
[2017-04-30 11:36] LABS: TROUGH DRAW TIME 1048
[2017-04-30 11:39] LABS: CREATININE RESULT 0.47 mg/dL (0.52-1.25)
[2017-04-30] MEDS: KETOROLAC TROMETHAMINE INJ/PF 30 MG/1 ML SDV IV PRN (13:43)
--- NOTE | 2017-04-30 14:43 | PDOC PROGRESS REPORT ---
Subjective Progress Note for:: 04/30/17 Subjective:: Patient is seen on morning on rounds. She is resting in bed. She appears overall improved from yesterday. She states she does feel better than yesterday. She continues to complain of diffuse abdominal discomfort. She continues to have a congested cough. She denies any nausea. She states she her appetite has improved. She denies any other complaints. Remaining review of systems are negative. Physical Exam Vital Signs: Temp Pulse Resp BP Pulse Ox 98.9 F 66 16 133/75 H 95 04/30/17 12:13 04/30/17 12:13 04/30/17 12:13 04/30/17 12:13 04/30/17 12:13 Intake & Output 04/29/17 04/30/17 05/01/17 06:59 06:59 06:59 Intake Total 2151 3157 150 Output Total 300 Balance 1851 3157 150 Weight 49.4 kg 50.1 kg General appearance: PRESENT: no acute distress, thin, well-developed, well- nourished Head exam: PRESENT: atraumatic, normocephalic Eye exam: PRESENT: conjunctiva pink, EOMI, PERRLA. ABSENT: scleral icterus Ear exam: PRESENT: normal external ear exam Mouth exam: PRESENT: moist, tongue midline Neck exam: ABSENT: carotid bruit, JVD, lymphadenopathy, thyromegaly Respiratory exam: PRESENT: clear to auscultation rayray. ABSENT: rales, rhonchi, wheezes Cardiovascular exam: PRESENT: RRR. ABSENT: diastolic murmur, rubs, systolic murmur Pulses: PRESENT: normal dorsalis pedis pul Vascular exam: PRESENT: normal capillary refill GI/Abdominal exam: PRESENT: normal bowel sounds, soft, tenderness Rectal exam: PRESENT: deferred Extremities exam: PRESENT: full ROM. ABSENT: calf tenderness, clubbing, pedal edema Neurological exam: PRESENT: alert, awake, oriented to person, oriented to place , oriented to time, oriented to situation, CN II-XII grossly intact. ABSENT: motor sensory deficit Psychiatric exam: PRESENT: appropriate affect, normal mood. ABSENT: homicidal ideation, suicidal ideation Skin exam: PRESENT: dry, intact, warm. ABSENT: cyanosis, rash Results Laboratory Results: 04/29/17 04:44 04/30/17 10:48 04/29/17 04/30/17 04/30/17 16:54 05:24 10:48 Sodium 132.9 L 135.7 L Potassium 3.9 D 4.1 Chloride 104 110 H Carbon Dioxide 21 L 18 L Anion Gap 8 8 BUN 16 10 Creatinine 0.59 0.49 L 0.47 L Est GFR ( Amer) > 60 > 60 > 60 Est GFR (Non-Af Amer) > 60 > 60 > 60 Glucose 93 82 Calcium 7.6 L 7.6 L Impressions: Abdomen/Pelvis CT 04/28/17 00:00 IMPRESSION: 1. Small to moderate right lower lobar pneumonia. 2. Mild focal ileus of the ileum in the right lower abdominal quadrant. Recent ventral hernia repair. Chest X-Ray 04/28/17 00:00 IMPRESSION: Bibasilar air airspace densities as noted above which could represent bibasilar pneumonic infiltrates or atelectatic changes. Obstructive lung disease. Other findings as noted above Assessment & Plan - Diagnosis (1) Abdominal pain Qualifiers: Abdominal location: generalized Qualified Code(s): R10.84 - Generalized abdominal pain Is this a current diagnosis for this admission?: YesPlan: Patient is post op hernia repair (2) GERD (gastroesophageal reflux disease) Qualifiers: Esophagitis presence: esophagitis presence not specified Qualified Code(s): K21.9 - Gastro-esophageal reflux disease without esophagitis Is this a current diagnosis for this admission?: YesPlan: Continue PPI therapy (3) HTN (hypertension) Qualifiers: Hypertension type: essential hypertension Qualified Code(s): I10 - Essential (primary) hypertension Is this a current diagnosis for this admission?: YesPlan: Presently normotensive (4) High anion gap metabolic acidosis Is this a current diagnosis for this admission?: YesPlan: Improving most likely due to poor oral intake post operatively (5) Hypokalemia Is this a current diagnosis for this admission?: YesPlan: Replete and monitor (6) Hyponatremia Is this a current diagnosis for this admission?: YesPlan: Likely secondary to HCTZ and poor oral intake, Will hold HCTZ and monitor - Time Time Spent with patient: 25-34 minutes Critical Time spent with patient: 15-24 minutes Smoking Cessation Education: 3 to 10 minutes Medications reviewed and adjusted accordingly: Yes Anticipated discharge: Home Within: within 24 hours
[2017-04-30 16:48] VITALS: BP 135/64
--- NOTE | 2017-05-05 09:42 | DISCHARGE SUMMARY E ---
Discharge Summary NAME: LUIZ MORRISON : 1945 AGE: 71Y ADMITTED: 04/29/2017 DISCHARGED: 04/30/2017 REASON FOR ADMISSION: Failure to thrive. SUMMARY OF HOSPITALIZATION: Patient is a 71-year-old white female who underwent laparoscopic ventral wall hernia repair approximately 5 days prior to this admission. The patient was discharged home on postoperative day 1 but had trouble with p.o. intake, became dehydrated, and was seen in the office where she was found to be in mild distress. She was admitted to the hospital where she was rehydrated consistent with her clinical and laboratory profile. A CT scan of the abdomen and pelvis showed no evidence of intra-abdominal pathology; only postoperative changes. Over the ensuing days the patient's clinical condition improved. She was started on a diet which was advanced, and by the third hospital day she was ready for discharge home. FINAL DIAGNOSIS: Postoperative dehydration, status post rehydration with clinical improvement. DISPOSITION: The patient will be discharged home in the care of family. Follow up with [facility] in approximately 1 week. She is to resume her preoperative medications, diet and activity. DICTATING PHYSICIAN: KEN PIZARRO M.D. [id number] PHY#: [id number] ID: [id number] JOB#: [id number] ACCT: [id number] cc:KEN PIZARRO M.D. >
== END 2017-04-30 20:00 | disposition home or self-care (01) | DRG 921 ==
LOC: 4S 15:13 → UNDOADMOB 15:13 → INTOOBSV 15:13 → 4S 16:51 → OBSVTOIN 04-29 12:39
PROVIDERS: ADMIT Surgery; ATTEND Surgery
DX: T81.89XA Other complications of procedures, not elsewhere classified, initial encounter (principal); E86.0 Dehydration; I10 Essential (primary) hypertension; E87.6 Hypokalemia; K21.9 Gastro-esophageal reflux disease without esophagitis; J44.9 Chronic obstructive pulmonary disease, unspecified; F17.210 Nicotine dependence, cigarettes, uncomplicated; Y83.2 Surgical operation with anastomosis, bypass or graft as the cause of abnormal reaction of the patient, or of later complication, without mention of misadventure at the time of the procedure; Z90.49 Acquired absence of other specified parts of digestive tract; Z79.899 Other long term (current) drug therapy; Z82.49 Family history of ischemic heart disease and other diseases of the circulatory system
CPT/HCPCS: 36415; 71020; 74177; 80048; 80076; 80202; 81001; 82565; 83690; 83735; 85025; 85027; 87040; 87070; 87077; 87186; 87205; 87493; 94667; 94799; G0378; J0456; J0696; J1885; J3370; J3480; J3490; J7030; J7060

== ENCOUNTER → 2017-04-28 | Outpatient (CLI) | payer MEDICARE, OTHER ==
[2017-04-28 12:57] LABS: HEMATOCRIT 42.6 % (36.0-47.0); HEMOGLOBIN 15.1 g/dL (12.0-15.5); HGB HCT DIFFERENCE 2.7; MEAN CORPUSCULAR HEMOGLOBIN 32.1 pg (27.0-33.4); MEAN CORPUSCULAR HGB CONC 35.5 g/dL (32.0-36.0); MEAN CORPUSCULAR VOLUME 91 fl (80-97); RED BLOOD COUNT 4.71 10^6/uL (3.72-5.28); WHITE BLOOD COUNT 18.6 10^3/uL (4.0-10.5)
[2017-04-28 13:17] LABS: BASOPHILS % (MANUAL) 0 % (0-2); EOSINOPHILS % (MANUAL) 0 % (0-6); LYMPHOCYTES % (MANUAL) 5 % (13-45); TOTAL CELLS COUNTED 100
[2017-04-28 13:24] LABS: ANISOCYTOSIS SLIGHT
[2017-04-28 13:25] LABS: OVALOCYTES SLIGHT; PLATELET CLUMPS PRESENT; POIKILOCYTOSIS SLIGHT
[2017-04-28 13:31] LABS: BLOOD UREA NITROGEN 22 mg/dL (7-20); CHLORIDE 100 mmol/L (98-107); CREATININE RESULT 0.78 mg/dL (0.52-1.25); GLUCOSE 102 mg/dL (75-110); POTASSIUM 3.3 mmol/L (3.6-5.0)
[2017-04-28 13:41] LABS: CARBON DIOXIDE 15 mmol/L (22-30); SODIUM 138.5 mmol/L (137-145)
[2017-04-28 13:42] LABS: ANION GAP 24 (5-19)
[2017-04-28 15:09] LABS: ALANINE AMINOTRANSFERASE 53 U/L (9-52); ALBUMIN 3.7 g/dL (3.5-5.0); ALKALINE PHOSPHATASE 250 U/L (38-126); ASPARTATE AMINO TRANSFERASE 67 U/L (14-36); BILIRUBIN,DIRECT 0.8 mg/dL (0.0-0.4); BILIRUBIN,TOTAL 1.3 mg/dL (0.2-1.3); LIPASE 14.2 U/L (23-300); TOTAL PROTEIN 6.6 g/dL (6.3-8.2)
== END ==
LOC: OD 12:11
PROVIDERS: ATTEND Physician Assistant Surgical
DX: R19.7 Diarrhea, unspecified (principal); R50.9 Fever, unspecified; Z98.890 Other specified postprocedural states
CPT/HCPCS: 36415; 80048; 80076; 83690; 85025

== ENCOUNTER → 2017-10-29 | Outpatient (CLI) | payer MEDICARE, OTHER ==
--- NOTE | 2017-10-29 14:48 | RADIOLOGY REPORT (SQ) ---
EXAM DESCRIPTION: CT ABD/PELVIS WITH IV ORAL COMPLETED DATE/TIME: 10/29/2017 9:45 am REASON FOR STUDY: R10.13 EPIGASTRIC PAIN K31.89 OTHER DISEASES OF STOMACH AND DUODENUM R10.13 EPIGA STRIC PAIN K31.89 OTHER DISEASES OF STOMACH AND DUODENUM R63.4 ABNORMAL WEIGHT LOSS COMPARISON: 04/28/2017 TECHNIQUE: CT scan of the abdomen and pelvis performed with intravenous and oral contrast using raina sharon scanning technique with dynamic intravenous contrast injection. Images reviewed with lung, soft t issue, and bone windows. Reconstructed coronal and sagittal MPR images reviewed. Delayed images for e valuation of the urinary system also acquired. All images stored on PACS. All CT scanners at this facility use dose modulation, iterative reconstruction, and/or weight based d osing when appropriate to reduce radiation dose to as low as reasonably achievable (ALARA). [facility]: Dose Right [facility]: CareDose [facility]: Dose Right [facility]: Teradose 4D [facility]: [employer] CONTRAST TYPE AND DOSE: contrast/concentration: Isovue 370.00 mg/ml; Total Contrast Delivered: 53.0 ml; Total Saline Delivered: 65.0 ml RENAL FUNCTION: Creatinine 0.7 RADIATION DOSE: CT Rad equipment meets quality standard of care and radiation dose reduction techniq ues were employed. CTDIvol: 2.4 - 2.8 mGy. DLP: 222 mGy-cm. . LIMITATIONS: None. FINDINGS: LOWER CHEST: No significant findings. No nodules or infiltrates. LIVER: Old granulomatous disease. SPLEEN: Normal size. No focal lesions. PANCREAS: No masses. No significant calcifications. No adjacent inflammation or peripancreatic fluid collections. Pancreatic duct not dilated. GALLBLADDER: Surgically absent. ADRENAL GLANDS: No significant masses or asymmetry. RIGHT KIDNEY AND URETER: No solid masses. No significant calcifications. No hydronephrosis or hyd roureter. LEFT KIDNEY AND URETER: No solid masses. No significant calcifications. No hydronephrosis or hydr oureter. AORTA AND VESSELS: No aneurysm. RETROPERITONEUM: No retroperitoneal adenopathy, hemorrhage or masses. BOWEL AND PERITONEAL CAVITY: Sigmoid diverticulosis. No obstruction. No visualized masses. No free f luid. No inflammatory changes or thickening of bowel wall. APPENDIX: Not visualized. PELVIS: No significant masses. Normal bladder. No free fluid. ABDOMINAL WALL: No masses. No hernias. BONES: No acute findings. OTHER: No other significant finding. IMPRESSION: NO ACUTE FINDINGS IN THE ABDOMEN OR PELVIS. TECHNICAL DOCUMENTATION: JOB ID: [id number] Quality ID # [id number]: Final reports with documentation of one or more dose reduction techniques (e.g., Au tomated exposure control, adjustment of the mA and/or kV according to patient size, use of iterative reconstruction technique) 2010 [employer]- All Rights Reserved
== END ==
LOC: RAD 09:21
PROVIDERS: ATTEND Internal Medicine Gastroenterology
DX: K31.89 Other diseases of stomach and duodenum (principal); R10.13 Epigastric pain; R63.4 Abnormal weight loss
CPT/HCPCS: 74177; 82565